=== PATIENT | female | born 2000 | race Caucasian/White ===

== ENCOUNTER 2025-03-01 05:31 | Day surgery (SDC) | payer BC ==
[2025-02-25 14:34] VITALS: BMI 61.8
[2025-03-01] MEDS ORDERED: metroNIDAZOLE 500 MG (100 mL) BAG ONE (06:29)
[2025-03-01] MEDS ORDERED: Ondansetron PF 4 MG/2 ML Vial ONE (06:38)
[2025-03-01] MEDS ORDERED: Ketorolac Tromethamine 30 MG (1 mL) VIAL ONE (06:38)
[2025-03-01] MEDS ORDERED: PROPOFOL 40 ML ONE (06:38)
[2025-03-01 07:25] LABS: #Basophils Less than 0.03 10x3/uL (0.0-0.2); #Eosinophils 0.11 10x3/uL (0.0-0.5); #Monocytes 0.47 10x3/uL (0.0-1.1); #Neutrophils 3.57 10x3/uL (1.5-8.4); %Basophils 0.3 % (0.0-2.0); %Eosinophils 1.8 % (0.0-6.0); %Lymphocytes 33.0 % (18.0-47.0); %Monocytes 7.5 % (0.0-10.0); %Neutrophils 57.2 % (40.0-75.0); Hematocrit 37.8 % (34.9-44.5); Hemoglobin 12.8 g/dL (12.0-15.5); Mean Corpuscular Hemoglobin 33.1 pg (27.0-33.0); Mean Corpuscular Volume 97.7 fL (81.6-98.3); Platelet Count 267 10x3/uL (150-450); Red Blood Cell (RBC) Count 3.87 10x6/uL (3.90-5.03); White Blood Cell (WBC) Count 6.24 10x3/uL (3.5-10.5)
[2025-03-01] MEDS ORDERED: Ciprofloxacin Lactate/D5W 400 MG in Premix 1 BAG IVPB SCH (07:30)
[2025-03-01 07:37] LABS: BHCG - Serum Negative (NEGATIVE); Pregs Control Background? CLEAR/WHITE (CLR/WHITE); Pregs Control Bar Appear? YES (CONTROL BAR)
[2025-03-01 07:43] LABS: Anion Gap 15 mmol/L (10-20); BUN (Urea Nitrogen) 9 mg/dL (7.0-18.7); Calc. Creatinine Clearance 330 mL/min (70-130); Calcium 8.6 mg/dL (7.8-10.44); Carbon Dioxide 21 mmol/L (22-29); Chloride 107 mmol/L (98-107); Glucose 81 mg/dL (70-105); Potassium 3.9 mmol/L (3.5-5.1); Sodium 139 mmol/L (136-145)
[2025-03-01] MEDS ORDERED: Lidocaine 1% PF 5 ML VIAL ONE (08:01)
== END 2025-03-01 09:58 | disposition home or self-care (01) ==
LOC: CSHSDC 05:31
PROVIDERS: ATTEND Obstetrics & Gynecology
PROC: 0UDB8ZZ Extraction of Endometrium, Via Natural or Artificial Opening Endoscopic (ICD-10-PCS; principal; 2025-03-01)
DX: N84.0 Polyp of corpus uteri (principal); N76.0 Acute vaginitis; E28.2 Polycystic ovarian syndrome
CPT/HCPCS: 80048; 84703; 85025; 88305; J0744; J1100; J1885; J2250; J2405; J2704; J3010